=== PATIENT | male | born 1965 | race Caucasian/White ===

== ENCOUNTER 2016-10-23 05:39 | Outpatient (CLI) | payer BC ==
[~2016-10-23] VITALS: Ht 185.4 cm; Wt 94.3 kg
[~2016-10-23 05:39] MED LIST: EPIN0.3P3 IM; METH4TAB PO; PRD20T PO
[2016-10-23] MEDS ORDERED: OMEP40CA36 PO (13:23)
== END 2016-10-23 13:26 ==
LOC: PREOP 05:39
PROVIDERS: ATTEND Surgery
DX: Z01.818 Encounter for other preprocedural examination (principal); Z12.11 Encounter for screening for malignant neoplasm of colon; Z86.010 Personal history of colon polyps

== ENCOUNTER 2016-10-25 06:47 | Day surgery (SDC) | payer BC ==
[~2016-10-25] VITALS: Ht 185.4 cm; Wt 94.3 kg
[~2016-10-25 06:47] MED LIST changes: +OMEP40CA36 PO
[2016-10-25] MEDS ORDERED: NS IV 1000 ML 1,000 ML IV STA (07:00)
[2016-10-25] MEDS ORDERED: NS IV 1000 ML 1,000 ML ONE (07:04)
[2016-10-25] MEDS ORDERED: MIDAZOLAM 2 MG/2 ML (VERSED) VIAL ONE (07:08)
[2016-10-25] MEDS ORDERED: proPOfol 200 MG/20 ML (DIPRIVAN) VIAL IV ONE (07:08)
[2016-10-25 07:14] VITALS: BP 131/96
--- NOTE | 2016-10-25 07:30 | Progress Note-Pre Operative ---
Pre-Operative Progress Note H&P Reviewed The H&P was reviewed, patient examined and no changes noted. Date H&P Reviewed: Oct 25, 2016 Time H&P Reviewed: 07:30 Pre-Operative Diagnosis: history of polyps JOSE SCHMIDT DO Oct 25, 2016 07:30
--- NOTE | 2016-10-25 08:04 | Progress Note-Post Operative ---
Post-Operative Progess Note Pre-Operative Diagnosis history of polyps Post-Operative Diagnosis diverticulosis Post-Op Procedure Note Date of Procedure: Oct 25, 2016 Name of Procedure: colonoscopy Procedure Note/Findings see note Anesthesia Type per mda Estimated blood loss (mL): none Specimen(s) collected none JOSE SCHMIDT DO Oct 25, 2016 08:04
--- NOTE | 2016-10-25 08:05 | Discharge Inst-Simple/Standard ---
Discharge Inst-Standard Patient Instructions/Follow Up Plan of Care/Instructions/FU: Repeat colonoscopy 5 years. Any problems before that be re-evaluated at that time. Activity as Tolerated: Yes Discharge Diet: Regular Diet (high fiber) JOSE SCHMIDT DO Oct 25, 2016 08:05
[2016-10-25 08:10] VITALS: BP 128/82
[2016-10-25 08:45] VITALS: BP 132/78
[2016-10-25 08:50] VITALS: BP 132/78
--- NOTE | 2016-10-25 10:42 | PROCEDURE REPORT ---
PROCEDURE PHYSICIAN: JOSE SCHMIDT DATE OF PROCEDURE: 10/25/2016 PREOPERATIVE DIAGNOSIS: History of colon polyps. POSTOPERATIVE DIAGNOSIS: Diverticulosis. PROCEDURE: Colonoscopy. SURGEON: Khadijah. ANESTHESIA: Per MDA. ESTIMATED BLOOD LOSS: None. COMPLICATIONS: None. INDICATIONS: The patient is a 51-year-old male with history of polyps. He is due for screening colonoscopy. He understands the risk and benefits of the procedure and wished to proceed with procedure. Consent was signed on the chart. PROCEDURE: The patient was taken to the endoscopy suite, placed in left lateral position. Timeout was performed. Digital rectal exam was performed. There were no palpable polyps, masses, ulcerations. The scope was inserted in the rectum and advanced all the way to the cecum with minimal difficulty. Prep was adequate. The scope was then slowly retracted back. There were no polyps, masses, ulcerations visualized within the cecum, ascending, transverse, and descending colon. Within the sigmoid colon there was a small amount of diverticulosis present. No polyps, masses or ulcerations. The scope was continued to be slowly retracted back into the rectum where it was also retroflexed noting no other pathology. The scope was returned its normal position slowly withdrawn until completely removed. The patient tolerated the procedure well without any complications and taken to recovery room in stable condition. RECOMMENDATIONS: It is recommended he have a high fiber diet. He will need a repeat colonoscopy in 5 years. If he has any problems prior to that, he should be reevaluated at that time. Job ID: [id number] Dictated Date: 10/25/2016 08:07:51 Airline Pilot Date: 10/25/2016 10:34:28 / yeni
--- OUTSIDE RECORDS SUMMARY | 2016-10-27 11:53 | XMS REPORT | Continuity of Care Document ---
Author Author [facility] Organization [facility] Address Unknown Phone Unavailable Allergies Medications Problems Procedures Results Encounters ACCT No. Visit Date/Time Discharge Status Pt. Type Provider Facility Loc./Unit Complaint [id number] 03/07/2014 00:37:00 2013 03:53:00 DIS Emergency [id number] 06/22/2013 01:53:00 2012 03:18:00 DIS Emergency [id number] 10/25/2016 07:30:00 Document Registration [id number] 10/23/2016 05:39:00 ACT Outpatient JOSE SCHMIDT DO [facility] PREOP HISTORY POLYPS
== END 2016-10-25 08:50 | disposition home or self-care (01) ==
LOC: DELPENDDIS → ENDO 06:47
PROVIDERS: ATTEND Surgery
DX: Z12.11 Encounter for screening for malignant neoplasm of colon (principal); Z86.010 Personal history of colon polyps; K57.30 Diverticulosis of large intestine without perforation or abscess without bleeding

== ENCOUNTER 2019-01-11 17:51 | Emergency (ER) | payer BC ==
[~2019-01-11] VITALS: Ht 188 cm; Wt 98.4 kg
[2019-01-11] MEDS ORDERED: KETOROLAC 30 MG/ML VIAL IVP STA (18:17)
--- NOTE | 2019-01-11 18:26 | ED General ---
General Chief Complaint: Back Problems Stated Complaint: HIGH BP 180/106, SCIATIC NERVE PAIN Nursing Triage Note: PT SELMA ELDRIDGE WITH COMPLAINT OF SCIATIC NERVE PAIN AND HIGH BLOOD PRESSURE. STATES SAW ONSITE URGENT CARE AT WORK AND HAD HIGH BP. WAS PRESCRIBED LISNINPRIL. Nursing Sepsis Screen: No Definite Risk Source of Information: Patient History of Present Illness Date Seen by Provider: Jan 11, 2019 Time Seen by Provider: 18:06 Initial Comments PT ARRIVES VIA POV FROM HOME STATES HE HAS HAD LOW BACK PAIN WITH RIGHT SIDED SCIATICA SINCE FRIDAY, AFTER RIDING IN A CAR FOR 2 HOURS HAS SLIGHT TINGLING IN RIGHT LEG NO MOTOR DEFICITS --JUST HURTS IN RIGHT SI AREA TO PUT WEIGHT ON RIGHT LEG NO INJURY HAS HAD THIS SAME PROBLEM OFF AND ON FOR A COUPLE OF YEARS, HAS NOT SOUGHT CARE UNTIL TODAY TOOK AN ANTI-INFLAMMATORY AND ANOTHER UNKNOWN MEDICATION YESTERDAY, BUT HAS NOT TAKEN ANYTHING TODAY FOR PAIN WENT TO DR. TRAN, ON SITE DR AT WORK AT [employer], FOR THIS PROBLEM AND WAS FOUND TO HAVE HIGH BLOOD PRESSURE HAS NOT BEEN DX WITH HTN PRIOR TO TODAY STATES HIS BP HAS BEEN IN 130'140'S / 80'S IN THE PAST WAS 160/106 AND 180/100'S TODAY WAS GIVEN RX FOR LISINOPRIL 10 MG TODAY AND TOOK 1 JUST PRIOR TO ARRIVAL NO CHEST PAIN NO SHORTNESS OF BREATH NO HEADACHE NO VISION CHANGES NO WEAKNESS NO PALPITATIONS NO SWELLING IN LEGS/FEET OR PAIN IN CALVES NO DIZZINESS PCP: DR. SPANGLER, BUT HAS NOT SEEN IN "10 OR 15 YEARS" Allergies and Home Medications Allergies Coded Allergies: No Known Drug Allergies (Unverified , 10/23/16) Home Medications Cyclobenzaprine HCl 10 Mg Tablet, 10 MG PO Q8H Prescribed by: NEYMAR WESTFALL on 01/11/191928 Omeprazole 40 Mg Capsule., 40 MG PO DAILY, (Reported) Tramadol HCl 50 Mg Tablet, 50 MG PO Q4H PRN for PAIN-MODERATE Prescribed by: NEYMAR WESTFALL on 01/11/191928 Patient Home Medication List Home Medication List Reviewed: Yes Review of Systems Review of Systems Constitutional: no symptoms reported; No dizziness Respiratory: no symptoms reported Cardiovascular: no symptoms reported Gastrointestinal: no symptoms reported Genitourinary: no symptoms reported Musculoskeletal: see HPI Skin: no symptoms reported Psychiatric/Neurological: See HPI; Denies Headache Hematologic/Lymphatic: No Symptoms Reported Immunological/Allergic: no symptoms reported Past Hqorzjm-Movjfl-Xirmsg Hx Patient Social History Alcohol Use: Occasionally Uses Number of Drinks Today: AA Alcohol Beverage of Choice: Beer Recreational Drug Use: No Smoking Status: Former Smoker Type Used: Cigarettes Former Smoker, Quit: Oct 23, 2006 Recent Foreign Travel: No Contact w/Someone Who Travel: No Recent Infectious Disease Expo: No Recent Hopitalizations: No Immunizations Up To Date Tetanus Booster (TDap): Unknown Date of Influenza Vaccine: May 13, 2016 Seasonal Allergies Seasonal Allergies: Yes (MILD) Past Medical History Surgeries: Yes (WISDOM TEETH; COLONOSCOPIES/POLYPECTOMY) Respiratory: No Currently Using CPAP: No Cardiac: No Neurological: No Reproductive Disorders: No Sexually Transmitted Disease: No HIV/AIDS: No Genitourinary: No Gastrointestinal: Yes Polyps Musculoskeletal: Yes (OCCASIONAL SCIATICA) Endocrine: No HEENT: No Loss of Vision: Bilateral Hearing Impairment: Denies Cancer: No Psychosocial: Yes Anxiety Integumentary: Yes (HIVES--UNKNOWN ETIOLOGY) Blood Disorders: No Adverse Reaction/Blood Tranf: No (N/A) Physical Exam Vital Signs Vital Signs - First Documented 01/11/19 17:56 Temp 97.1 Pulse 69 Resp 17 B/P (MAP) 173/117 (135) Pulse Ox 99 O2 Delivery Room Air Capillary Refill : Less Than 3 Seconds Height, Weight, BMI Height: 6'2.00" Weight: 217lbs. 0.0oz. 98.994336ji; 27.4 BMI Method:Stated General Appearance: No Apparent Distress, WD/WN, Other (LAYING OUTSTRETCHED, DOES NOT APPEAR TO BE IN ANY DISCOMFORT AT THIS TIME. ) Neck: Normal Inspection Respiratory: Normal Breath Sounds, No Accessory Muscle Use, No Respiratory Distress Cardiovascular: Regular Rate, Rhythm, No Edema, No JVD, No Murmur, Normal Peripheral Pulses Gastrointestinal: Soft Back: Other (MILD LUMBAR TENDERNESS AND RIGHT SI JOINT TENDERNESS, STRAIGHT LEG RAISING + AT 90 DEGREES) Extremity: Normal Capillary Refill, Normal Inspection, Normal Range of Motion, Non Tender, No Calf Tenderness, No Pedal Edema Neurologic/Psychiatric: Alert, Oriented x3, No Motor/Sensory Deficits, Normal Mood/Affect, licensed bondsman II-XII Norm as Tested Skin: Normal Color, Warm/Dry; No Rash Progress/Results/Core Measures Suspected Sepsis Recent Fever Within 48 Hours: No Infection Criteria Present: None New/Unexplained Altered Menta: No Sepsis Screen: No Definite Risk SIRS Temperature:97.1 Pulse: 69 Respiratory Rate: 17 Laboratory Tests 01/11/19 18:30: White Blood Count 6.1 Blood Pressure 173 /117 Mean: 135 Laboratory Tests 01/11/19 18:30: Creatinine 1.01, INR Comment 1.0, Platelet Count 253, Total Bilirubin 0.8 Results/Orders Lab Results Laboratory Tests Test 01/11/19 18:30 Range/Units White Blood Count 6.1 4.3-11.0 10^3/uL Red Blood Count 4.80 4.35-5.85 10^6/uL Hemoglobin 14.0 13.3-17.7 G/DL Hematocrit 40 40-54 % Mean Corpuscular Volume 84 80-99 FL Mean Corpuscular Hemoglobin 29 25-34 PG Mean Corpuscular Hemoglobin Concent 35 32-36 G/DL Red Cell Distribution Width 12.7 10.0-14.5 % Platelet Count 253 130-400 10^3/uL Mean Platelet Volume 9.4 7.4-10.4 FL Neutrophils (%) (Auto) 54 42-75 % Lymphocytes (%) (Auto) 33 12-44 % Monocytes (%) (Auto) 9 0-12 % Eosinophils (%) (Auto) 3 0-10 % Basophils (%) (Auto) 1 0-10 % Neutrophils # (Auto) 3.3 1.8-7.8 X 10^3 Lymphocytes # (Auto) 2.0 1.0-4.0 X 10^3 Monocytes # (Auto) 0.6 0.0-1.0 X 10^3 Eosinophils # (Auto) 0.2 0.0-0.3 10^3/uL Basophils # (Auto) 0.0 0.0-0.1 10^3/uL Prothrombin Time 13.7 12.2-14.7 SEC INR Comment 1.0 0.8-1.4 Activated Partial Thromboplast Time 28 24-35 SEC Sodium Level 141 135-145 MMOL/L Potassium Level 3.7 3.6-5.0 MMOL/L Chloride Level 107 98-107 MMOL/L Carbon Dioxide Level 24 21-32 MMOL/L Anion Gap 10 5-14 MMOL/L Blood Urea Nitrogen 13 7-18 MG/DL Creatinine 1.01 0.60-1.30 MG/DL Estimat Glomerular Filtration Rate > 60 BUN/Creatinine Ratio 13 Glucose Level 87 70-105 MG/DL Calcium Level 9.7 8.5-10.1 MG/DL Corrected Calcium 9.5 8.5-10.1 MG/DL Magnesium Level 2.3 1.8-2.4 MG/DL Total Bilirubin 0.8 0.1-1.0 MG/DL Aspartate Amino Transf (AST/SGOT) 23 5-34 U/L Alanine Aminotransferase (ALT/SGPT) 30 0-55 U/L Alkaline Phosphatase 61 40-136 U/L Total Protein 6.8 6.4-8.2 GM/DL Albumin 4.2 3.2-4.5 GM/DL My Orders Orders - NEYMAR WESTFALL DO Ed Iv/Invasive Line Start (01/11/19 18:17) Monitor-Rhythm Ecg Trace Only (01/11/19 18:17) Cbc With Automated Diff (01/11/19 18:17) Comprehensive Metabolic Panel (01/11/19 18:17) Magnesium (01/11/19 18:17) Protime With Inr (01/11/19 18:17) Partial Thromboplastin Time (01/11/19 18:17) Ketorolac Injection (Toradol Injection) (01/11/19 18:17) Hydralazine Injection (Apresoline Inject (01/11/19 18:30) Cyclobenzaprine Tablet (Flexeril Tablet) (01/11/19 18:30) Hydralazine Injection (Apresoline Inject (01/11/19 19:15) Fentanyl Injection (Sublimaze Injection (01/11/19 19:30) Fentanyl Injection (Sublimaze Injection (01/11/19 19:25) Medications Given in ED Current Medications Medications Dose Ordered Sig/Debbie Route Start Time Stop Time Status Last Admin Dose Admin Hydralazine HCl 5 mg ONCE ONCE IV 01/11/19 18:30 01/11/19 18:31 DC 01/11/19 18:33 5 MG Vital Signs/I&O 01/11/19 01/11/19 17:56 18:33 Temp 97.1 97.1 Pulse 69 Resp 17 B/P (MAP) 173/117 (135) Pulse Ox 99 O2 Delivery Room Air Capillary Refill : Less Than 3 Seconds Blood Pressure Mean: 135 Progress Note : Progress Note BP DOWN AND PAIN IMPROVED AT DISMISSAL PT ANXIOUS TO GO HOME Departure Impression Primary Impression: HTN (hypertension) Additional Impression: Low back pain with right-sided sciatica Disposition: HOME, SELF-CARE Condition: Improved Departure-Patient Inst. Referrals: ELLIOTT SPANGLER MD (PCP/Family) Primary Care Physician Patient Instructions: Low Back Pain (DC), Radiculopathy (DC), DASH Diet, High Blood Pressure (DC), Controlling Your Blood Pressure Through Lifestyle, Sciatica (DC) Add. Discharge Instructions: CONTINUE YOUR ANTI-INFLAMMATORY PRESCRIBED ALTERNATE ICE AND HEAT TO SORE AREA AT 20 MINUTE INTERVALS TAKE LISINOPRIL DAILY FOLLOW UP WITH DR. SPANGLER THIS WEEK FOR FURTHER CARE All discharge instructions reviewed with patient and/or family. Voiced un derstanding. Scripts Tramadol HCl (Ultram) 50 Mg Tablet 50 MG PO Q4H PRN for PAIN-MODERATE for 3 Days, TAB Prov: NEYMAR WESTFALL DO 01/11/19 Cyclobenzaprine HCl (Cyclobenzaprine HCl) 10 Mg Tablet 10 MG PO Q8H, #15 TAB Prov: NEYMAR WESTFALL DO 01/11/19 NEYMAR WESTFALL DO Jan 11, 2019 18:26
[2019-01-11] MEDS ORDERED: hydrALAZINE (APESOLINE) 20 MG/ML VIAL IV ONE ×2 (18:30→19:15)
[2019-01-11] MEDS ORDERED: CYCLOBENZAPRINE 10 MG (FLEXERIL) TAB PO SCH (18:30)
[2019-01-11 18:57] LABS: BASOPHILS % (AUTO) 1 % (0-10); EOSINOPHILS # (AUTO) 0.2 10^3/uL (0.0-0.3); EOSINOPHILS % (AUTO) 3 % (0-10); HEMATOCRIT 40 % (40-54); LYMPHOCYTES % (AUTO) 33 % (12-44); MEAN CORPUSCULAR HEMOGLOBIN 29 PG (25-34); MEAN CORPUSCULAR HGB CONC 35 G/DL (32-36); MEAN CORPUSCULAR VOLUME 84 FL (80-99); MEAN PLATELET VOLUME 9.4 FL (7.4-10.4); MONOCYTES # (AUTO) 0.6 X 10^3 (0.0-1.0); MONOCYTES % (AUTO) 9 % (0-12); NEUTROPHILS # (AUTO) 3.3 X 10^3 (1.8-7.8); NEUTROPHILS % (AUTO) 54 % (42-75); PLATELET COUNT 253 10^3/uL (130-400); RED CELL DISTRIBUTION WIDTH 12.7 % (10.0-14.5); WHITE BLOOD COUNT 6.1 10^3/uL (4.3-11.0)
[2019-01-11 19:09] LABS: PROTHROMBIN TIME PATIENT 13.7 SEC (12.2-14.7)
[2019-01-11 19:15] LABS: ALANINE AMINOTRANSFERASE 30 U/L (0-55); ALBUMIN 4.2 GM/DL (3.2-4.5); ALKALINE PHOSPHATASE 61 U/L (40-136); BILIRUBIN,TOTAL 0.8 MG/DL (0.1-1.0); BUN/CREATININE RATIO 13; CALCIUM 9.7 MG/DL (8.5-10.1); CARBON DIOXIDE 24 MMOL/L (21-32); CHLORIDE 107 MMOL/L (98-107); CREATININE SERUM 1.01 MG/DL (0.60-1.30); GFR ESTIMATED > 60; GLUCOSE 87 MG/DL (70-105); MAGNESIUM 2.3 MG/DL (1.8-2.4); POTASSIUM 3.7 MMOL/L (3.6-5.0); SODIUM 141 MMOL/L (135-145); TOTAL PROTEIN 6.8 GM/DL (6.4-8.2)
[2019-01-11] MEDS ORDERED: fentaNYL INJECTION 100 MCG/2 ML AMP ONE (19:25)
[2019-01-11] MEDS ORDERED: CYCL10TA9 PO (19:29)
[2019-01-11] MEDS ORDERED: TRAM-42 PO (19:29)
[2019-01-11] MEDS ORDERED: fentaNYL INJECTION 100 MCG/2 ML AMP IVP ONE (19:30)
[2019-01-11 19:39] VITALS: BP 148/90
== END 2019-01-11 19:40 | disposition home or self-care (01) ==
LOC: EDUNIT# 17:51 → ER 17:52
DX: M54.41 Lumbago with sciatica, right side (principal); I10 Essential (primary) hypertension; F41.9 Anxiety disorder, unspecified; Z87.891 Personal history of nicotine dependence; Z86.010 Personal history of colon polyps; Z98.890 Other specified postprocedural states
CPT/HCPCS: 36415; 80053; 83735; 85025; 85610; 85730; 93041; 96374; 96375; 96376

== ENCOUNTER 2020-04-05 05:27 | Outpatient (RCR) | payer BC ==
[~2020-04-05] VITALS: Ht 185 cm; Wt 94.5 kg
[~2020-04-05 05:27] MED LIST changes: +CITA10TA7 PO; +CYCL10TA9 PO; +LOSA25TA41 PO; +OMEP40CA27 PO; -OMEP40CA36 PO; +TRAM-42 PO; +TRZ50T PO
== END 2020-04-05 14:31 | disposition home or self-care (01) ==
LOC: PREOP 05:27
PROVIDERS: ATTEND Surgery
DX: Z01.812 Encounter for preprocedural laboratory examination (principal); Z20.828 Contact with and (suspected) exposure to other viral communicable diseases
CPT/HCPCS: 87635

== ENCOUNTER 2020-04-07 12:13 | Day surgery (SDC) | payer BC ==
[~2020-04-07] VITALS: Ht 185 cm; Wt 94.5 kg
[2020-04-07] VITALS (13 sets, daily range): BP systolic 88–132; BP diastolic 51–93
[2020-04-07] MEDS ORDERED: NS IV 500 ML 500 ML ONE (12:25)
[2020-04-07] MEDS ORDERED: NS IV 500 ML 500 ML IV PRN (12:26)
[2020-04-07] MEDS ORDERED: HURRICAINE EXT TUBE (BENZOCAINE) XX PRN (12:30)
[2020-04-07] MEDS ORDERED: fentaNYL INJECTION 100 MCG/2 ML AMP IVP ONE (12:30)
[2020-04-07] MEDS ORDERED: LIDOCAINE JELLY 2% 6 ML SYRINGE MM PRN (12:30)
[2020-04-07] MEDS ORDERED: LIDOCAINE JELLY 2% 6 ML SYRINGE ONE (12:48)
[2020-04-07] MEDS ORDERED: fentaNYL INJECTION 100 MCG/2 ML AMP ONE ×2 (12:48→12:58)
[2020-04-07] MEDS ORDERED: MIDAZOLAM 5 MG/5 ML (VERSED) VIAL ONE ×2 (12:48→12:58)
[2020-04-07] MEDS: MIDAZOLAM 5 MG/5 ML (VERSED) VIAL IV PRN ×4 (12:54→13:05)
--- NOTE | 2020-04-07 13:02 | Progress Note-Pre Operative ---
Pre-Operative Progress Note H&P Reviewed The H&P was reviewed, patient examined and no changes noted. Date Seen by Provider: Apr 07, 2020 Time Seen by Provider: 12:00 Date H&P Reviewed: Apr 07, 2020 Time H&P Reviewed: 12:00 Pre-Operative Diagnosis: GERD, hematemesis LAZ BYRD MD Apr 07, 2020 13:02
[2020-04-07] MEDS ORDERED: PANT40TA2 PO (13:03)
--- NOTE | 2020-04-07 13:03 | Discharge Inst-Surgical ---
D/C Lap Instructions-ROCHELLE New, Converted, or Re-Newed RX: RX on Chart Follow Up Appt in 2 weeks Activity as tolerated Regular Diet Symptoms to Report: Fever over 101 degree F, Nausea/Vomiting Infection Signs and Symptoms to report: Increased redness, Foul odor of wound, Increased drainage Bathing instructions: May shower Operative Area Clean/Dry; Keep incision clean/dry If any problems/questions: Contact your physician or go to Emergency Room LAZ BYRD MD Apr 07, 2020 13:03
--- NOTE | 2020-04-07 13:07 | Conscious Sedation/ASA ---
Conscious Sedation Pre-Proced Time 12:00 ASA Score 2 For ASA 3 and 4: Consider anesthesia and medical clearance. Also, for patients with a history of failed moderate sedation consider anesthesia. Airway Lungs Heart ASA score ASA 1: a normal healthy patient ASA 2: a patient with a mild systemic disease (mid diabetes, controlled hypertension, obesity ASA 3: a patient with a severe systemic disease that limits activity (angina, COPD, prior Myocardial infarction) ASA 4: a patient with an incapacitating disease that is a constant threat to life (CHF, renal failure) ASA 5: a moribund patient not expected to survive 24 hrs. (ruptured aneurysm) ASA 6: a declared brain- patient whose organs are being harvested. For emergent operations, add the letter E after the classification Mallampati Classification Grade 2 Sedation Plan Analgesia, Amnesia, Plan communicated to team members, Discussed options with patient/fam, Discussed risks with patient/fam The patient is an appropriate candidate to undergo the planned procedure, sedation, and anesthesia. The patient immediately re-assessed prior to indication. LAZ BYRD MD Apr 07, 2020 13:07
[2020-04-07] MEDS ORDERED: ONDANSETRON 4 MG/2 ML (SDV) Z0FRAN IVP PRN (13:15)
[2020-04-07] MEDS ORDERED: morphine INJ 10 MG/ML 1ML (SYR OR VIAL) IVP PRN ×2 (13:15)
--- NOTE | 2020-04-07 13:28 | Progress Note-Post Operative ---
Post-Operative Progess Note Surgeon (s)/Clinical Athletic Instructor (s) Surgeon LAZ BYRD MD Clinical Athletic Instructor: none Pre-Operative Diagnosis GERD, hematemesis Post-Operative Diagnosis reflux esophagitis(stage 2), small HH(2cm), moderate gastritis. Procedure & Operative Findings Date of Procedure 04/07/20 Procedure Performed/Findings EGD with bx. Anesthesia Type cs Estimated Blood Loss Estimated blood loss (mL): minimal Specimens/Packing Specimens Removed ge jxn, antrum LAZ BYRD MD Apr 07, 2020 13:28
[2020-04-07] MEDS ORDERED: HURRICAINE EXT TUBE (BENZOCAINE) ONE (13:31)
--- NOTE | 2020-04-07 22:08 | OPERATIVE REPORT ---
DATE OF SERVICE: 04/07/2020 ATTENDING PRIMARY CARE PHYSICIAN: Donna Shipley MD PREOPERATIVE DIAGNOSES: Gastroesophageal reflux disease, one episode of hematemesis. POSTOPERATIVE DIAGNOSES: Reflux esophagitis stage II, small hiatal hernia 2 cm in size, moderate severity gastritis. PROCEDURE: EGD with biopsy. SURGEON: Laz Byrd MD. ANESTHESIA: Conscious sedation. ESTIMATED BLOOD LOSS: Minimal. FINDINGS: Reflux esophagitis stage II, small hiatal hernia 2 cm in size, moderate severity gastritis. DISPOSITION: The patient tolerated the procedure well. INDICATIONS: The patient is a 54-year-old male who has had issues with gastroesophageal reflux disease; however, has also had episodes of nausea and vomiting on an intermittent basis. He did have one episode of emesis and did notice blood-tinged stomach contents. He does have some risk factors for acid indigestion as well as reflux as well as the daily caffeine intake as well as alcohol and chewing tobacco. DESCRIPTION OF PROCEDURE: The patient was brought to the endoscopy suite, laid in the left lateral decubitus position. After adequate IV pain and sedating medications and conscious sedation anesthesia, the mouthpiece was applied. The endoscope was then placed in the mouth, visualizing the pharynx and hypopharyngeal region. Vocal cords, epiglottis and vallecula identified and appeared to be normal. Endoscope was gently intubated in the esophageal opening and esophagus insufflated. The endoscope was then advanced to the first, second and third portion of esophagus at the level of the GE junction, a reflux esophagitis stage II identified. There were no ulcers or strictures identified in this region. A biopsy was taken with forceps with visualization of good hemostasis. The endoscope was then advanced in the stomach and endoscope retroflexed, visualizing a small hiatal hernia approximately 2 cm in size. There was a moderate severity gastritis more towards the stomach antrum. No formal ulcerations, polyps, or any neoplasms. A biopsy was taken to rule out H. pylori with visualization of good hemostasis. The endoscope was then advanced to the pylorus and the first and second portion of the duodenum, which appeared normal with no ulcerations. The endoscope was then slowly withdrawn while taking a second look and suctioning of residual air with no additional findings. The patient tolerated the procedure well. We will recommend the necessary lifestyle and diet accommodation including moderation of caffeinated as well as alcoholic beverages as well as avoidance of spicy, greasy and acidic foods. He will also need to decrease, if not quit, his chewing tobacco as well. We will also recommend small and more frequent meals, avoidance of eating at night. We will also start him on Protonix 40 mg daily. Job ID: [id number] DocumentID: [id number] Dictated Date: 04/07/2020 13:24:33 Recruiting Administrator Date: 04/07/2020 22:08:23 Dictated By: LAZ BYRD MD
== END 2020-04-07 14:10 | disposition home or self-care (01) ==
LOC: ENDO 12:13
PROVIDERS: ATTEND Surgery
DX: K21.0 Gastro-esophageal reflux disease with esophagitis (principal); K44.9 Diaphragmatic hernia without obstruction or gangrene; K29.70 Gastritis, unspecified, without bleeding; F17.220 Nicotine dependence, chewing tobacco, uncomplicated; I10 Essential (primary) hypertension; F41.9 Anxiety disorder, unspecified; G47.00 Insomnia, unspecified; Z79.899 Other long term (current) drug therapy; Z88.8 Allergy status to other drugs, medicaments and biological substances

== ENCOUNTER → 2020-04-14 | Outpatient (CLI) | payer BC ==
[~2020-04-14] MED LIST changes: +PANT40TA2 PO
--- NOTE | 2020-04-14 08:56 | Diagnostic Imaging Report ---
PROCEDURE: US Gallbladder. TECHNIQUE: Multiple real-time grayscale images were obtained over the right upper quadrant in various projections. INDICATION: The liver is normal in size 17 cm. There is a homogeneous parenchyma, without evidence of discrete mass. The portal vein is patent and shows normal direction of flow. Gallbladder is without stones or sludge. No wall thickening or biliary duct dilatation is identified. Pancreas is nonvisualized due to overlying bowel gas. In addition, aorta and IVC are obscured due to overlying bowel gas. The right kidney demonstrates normal cortical thickness and echogenicity. No calculi or hydronephrosis is identified. There is no ascites. IMPRESSION: Limited study due to overlying bowel gas. There is no evidence of cholelithiasis or acute cholecystitis. Dictated by: Dictated on workstation # [id number]
== END ==
LOC: RAD 08:15
PROVIDERS: ATTEND Surgery
DX: R10.11 Right upper quadrant pain (principal); R11.2 Nausea with vomiting, unspecified
CPT/HCPCS: 76705

== ENCOUNTER → 2020-04-21 | Outpatient (CLI) | payer BC ==
[~2020-04-21] MED LIST changes: +CATHETER FLUSH 10 ML SYR IV PRN
--- NOTE | 2020-04-21 12:01 | Diagnostic Imaging Report ---
INDICATION: Right upper quadrant pain. TECHNIQUE: Patient was administered 5.1 mCi technetium 99m Choletec intravenously and imaging over the abdomen was performed. At one hour, patient ingested one can of Ensure and a gallbladder ejection fraction was calculated. FINDINGS: There is homogeneous uptake of activity by the liver with prompt excretion of activity into the gallbladder and common duct. Normal passage of activity into the small bowel is noted. Gallbladder ejection fraction is normal at 45%. There is some mild uptake in the stomach, consistent with bile reflux. IMPRESSION: 1. Patent cystic duct and common bile duct. 2. Normal gallbladder ejection fraction. 3. Mild bile reflux into the stomach. Dictated by: Dictated on workstation # [id number]
== END ==
LOC: CARD 10:00
PROVIDERS: ATTEND Surgery
DX: R10.11 Right upper quadrant pain (principal); E78.70 Disorder of bile acid and cholesterol metabolism, unspecified; R11.2 Nausea with vomiting, unspecified
CPT/HCPCS: 78227; A9537

== ENCOUNTER 2021-12-06 05:35 | Outpatient (CLI) | payer BC, OTHER ==
[~2021-12-06] VITALS: Ht 185.4 cm; Wt 103.2 kg
[~2021-12-06 05:35] MED LIST changes: -CATHETER FLUSH 10 ML SYR IV PRN; -CITA10TA7 PO; +CITA10TA9 PO; +CYCL10TA25 PO; -CYCL10TA9 PO; -OMEP40CA27 PO; +OMEP40CA6 PO
[2021-12-06] MEDS ORDERED: ALPR0.5T7 PO (13:53)
[2021-12-06] MEDS ORDERED: LISI5TAB20 PO (13:53)
== END 2021-12-06 13:53 | disposition home or self-care (01) ==
LOC: PREOP 05:35
PROVIDERS: ATTEND Surgery
DX: Z01.818 Encounter for other preprocedural examination (principal)

== ENCOUNTER 2021-12-14 11:22 | Day surgery (SDC) | payer BC, OTHER ==
[~2021-12-14] VITALS: Ht 185.4 cm; Wt 103.2 kg
[~2021-12-14 11:22] MED LIST changes: +ALPR0.5T7 PO; +LISI5TAB20 PO
[2021-12-14] MEDS ORDERED: LACTATED RINGERS 1,000 ML IV ONE (11:38)
[2021-12-14 11:40] VITALS: BP 103/73
[2021-12-14] MEDS ORDERED: LACTATED RINGERS 1,000 ML IV STA (11:47)
[2021-12-14] MEDS ORDERED: MIDAZOLAM 2 MG/2 ML (VERSED) VIAL ONE (12:35)
[2021-12-14] MEDS ORDERED: PROPOFOL INJECTION 50 ML IV ONE (12:35)
[2021-12-14 13:05] VITALS: BP 90/52
[2021-12-14 13:10] VITALS: BP 97/56
[2021-12-14 13:11] VITALS: BP 97/56
--- NOTE | 2021-12-14 13:12 | Anesthesia-General Post-Op ---
MAC Patient Condition Mental Status/LOC: Same as Preop Cardiovascular: Satisfactory Nausea/Vomiting: Absent Respiratory: Satisfactory Pain: Controlled Complications: Absent Post Op Complications Complications None Follow Up Care/Instructions Patient Instructions None needed. Anesthesiology Discharge Order Discharge Order Patient is doing well, no complaints, stable vital signs, no apparent adverse anesthesia problems. No complications reported per nursing. ARMIDA BERNAL DO December 14, 2021 13:12
[2021-12-14 13:40] VITALS: BP 94/58
--- NOTE | 2021-12-15 20:48 | OPERATIVE REPORT ---
DATE OF SERVICE: 12/14/2021 PREOPERATIVE DIAGNOSIS: History of colon polyps. POSTOPERATIVE DIAGNOSIS: Colon polyps. PROCEDURE: Colonoscopy with hot biopsy polypectomy x3. SURGEON: Jose Lucio DO ANESTHESIA: Per QI SPECIALIST. ESTIMATED BLOOD LOSS: None. COMPLICATIONS: None. INDICATIONS: The patient is a 56-year-old male needing colonoscopy. He understands risks and benefits of procedure and wished to proceed. Consent was signed in the chart. DESCRIPTION OF PROCEDURE: The patient was taken to the endoscopy suite, placed in left lateral recumbent position. Timeout was performed. Digital rectal exam was performed. No palpable polyps, masses or ulcerations. Scope was inserted in the rectum and advanced all the way to cecum with minimal difficulty. Prep was adequate. Scope was slowly retracted back. No polyps, masses or ulcerations in the cecum, ascending colon, transverse colon, there were two polyps present, which hot biopsy polypectomies were performed. Scope was then continuously retracted back. No polyps, masses or ulcerations within the descending colon. In the sigmoid colon, small polyp was present, which hot biopsy polypectomy was performed. Scope was continuously retracted back into the rectum, where it was also retroflexed noting no other pathology. Scope was returned to its normal position, slowly withdrawn until completely removed. The patient tolerated procedure well without any complications, taken to recovery room in stable condition. RECOMMENDATIONS: The patient will need repeat colonoscopy in 5 years. Any issues before that be seen at that time. The patient will follow up in the office in 2 weeks to discuss pathology results. Job ID: [id number] DocumentID: [id number] Dictated Date: 12/15/2021 11:24:17 Mortgage Loan Counselor Date: 12/15/2021 20:48:19 Dictated By: JOSE LUCIO DO
== END 2021-12-14 13:57 | disposition home or self-care (01) ==
LOC: ENDO 11:22
PROVIDERS: ATTEND Surgery
DX: Z12.11 Encounter for screening for malignant neoplasm of colon (principal); D12.3 Benign neoplasm of transverse colon; D12.5 Benign neoplasm of sigmoid colon; Z87.891 Personal history of nicotine dependence
CPT/HCPCS: 88305